=== PATIENT | female | born 1970 | race Caucasian/White ===

== ENCOUNTER 2021-12-16 12:35 | Emergency (ER) | payer SELFPAY ==
--- OUTSIDE RECORDS SUMMARY | 2021-12-16 12:40 | XMS REPORT | Continuity of Care Document ---
:1970 Author Organization [facility] t Address [address] [place] [address] Care Team Providers Name Role Phone Pcp, Does Not Have A Primary Care Physician Alexandra Cook MD Attending Clinician PERLA Attending Clinician Unavailable LIDIA Attending Clinician Unavailable Attending Clinician Unavailable PERLA Admitting Clinician Unavailable LIDIA Admitting Clinician Unavailable Admitting Clinician Unavailable Payers Payer Name Policy Type Policy Number Effective Date Expiration Date [facility] [id number] 2018 00:00:00 Problems Condition Condition Condition Status Onset Resolution Last Treating Co mments Source Name Details Category Date Date Treatment Clinician Date Mixed Mixed Problem Active [place] anxiety Anxiety 2-20 da and and 00:00: [facility] depressive Depressive 00 al disorder Disorder Health [facility] h Program Encounter Encounter Disease Active Overview: Univers for for 08-19 Formattin ity of routine routine 00:00: g of this [place] gynecologi gynecologi 00 note Me dical prieto prieto might be Branch examinatio examinatio different n n from the original. 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 FHx: FHx: Disease Active Univers breast breast 08-19 ity of cancer in cancer in 00:00: Clementine s first first 00 Medical degree degree Branch relative relative Tobacco Tobacco Disease Active Univers use use 08-19 ity of disorder disorder 00:00: [place] [address] Medical Branch Tubal Tubal Disease Active Univers ligation ligation 08-19 ity of status status 00:00: [place] 00 [facility] Branch Hx of Hx of Disease Active Univers abnormal abnormal 08-19 ity of Pap smear Pap smear 00:[facility] Allergies, Adverse Reactions, Alerts Allergy Allergy Status Severity Reaction(s) Onset Inactive Treating Comm ents Source Name Type Date Date Clinician NO KNOWN Drug Active Univers ALLERGIE Class ity of S [facility] Social History Social Habit Start Date Stop Date Quantity Comments Source History of Cigarette Smoker Universi ty of tobacco use [facility] Tobacco use and 2018-02-01 2018-02-01 Never used Universit y of exposure 00:00:00 00:00:00 [facility] Alcohol intake 2018-02-01 2018-02-01 Current University of 00:00:00 00:00:00 non-drinker of [facility] alcohol (finding) [place] Tobacco Comment 2013-08-19 2013-08-19 smokes 6 Universit y of 00:00:00 00:00:00 cigarettes per [facility] day, trying to cut Branch back Sex Ass[birth year] At [birth year] Universit y of 00:00:00 00:00:00 [facility] Smoking Status Start Date Stop Date Source Current every day smoker 2018-02-01 00:00:00 Uni versity of [facility] Medications Ordered Filled Start Stop Current Ordering Indication Dosage Frequency Signature Comments Components Source Medication Medication Date Date Medication? Clinician (SIG) Name Name ibuprofen Yes 600mg Take 600 Uni vers 600 mg 7-07 mg by ity of tablet 14:49: mouth [place] 53 every 6 Medical (six) Branch hours as needed. carisoprodo Yes 350mg Take 350 U nivers l 350 mg 6-09 mg by ity of tablet 00:00: mouth 3 [place] 00 (three) Medical times Branch daily as needed. HYDROcodone Yes 1{tbl} Take 1 Un dawn -acetaminop 6-01 tablet by ity of hen 10-325 00:00: [place] mg tablet 00 (two) Medical times Branch daily. gabapentin gabapentin No gabapentin [place] [facility] gabapentin gabapentin No gabapentin [place] 100 mg 100 mg 100 mg da capsule capsule capsule [facility] TAKE 2 TAKE 2 TAKE 2 al CAPSULES BY CAPSULES BY CAPSULES Health MOUTH 3 MOUTH 3 BY MOUTH 3 Out reac TIMES A DAY TIMES A DAY TIMES A h WITH MEALS WITH MEALS DAY WITH Program MEALS gabapentin gabapentin No gabapentin [place] 600 mg 600 mg 600 mg da tablet TAKE tablet TAKE tablet [facility] 1 TABLET BY 1 TABLET BY TAKE 1 al MOUTH THREE MOUTH THREE TABLET BY Health times a day times a day MOUTH Outreac THREE h times a Program day hydrocodone hydrocodone No hydrocodon [place] 10 10 e 10 da mg-acetamin mg-acetamin mg-acetami [facility] ophen 325 ophen 325 nophen 325 al mg tablet mg tablet mg tablet Health TK 1 T PO Q TK 1 T PO Q TK 1 T PO Outreac 6 H PRN 6 H PRN Q 6 H PRN h Program lisinopril lisinopril No lisinopril [place] 5 mg tablet 5 mg tablet 5 mg d a TAKE 1 TAKE 1 tablet [facility] TABLET BY TABLET BY TAKE 1 al MOUTH EVERY MOUTH EVERY TABLET BY Health DAY DAY MOUTH Outreac EVERY DAY h Program lorazepam lorazepam No lorazepam [place] 0.5 mg 0.5 mg 0.5 mg da tablet TK 1 tablet TK 1 tablet TK [facility] T PO BID T PO BID 1 T PO BID a l PRN FOR PRN FOR PRN FOR Health ANXIETY ANXIETY ANXIETY Outrea c h Program Prozac 20 Prozac 20 No 3capsul Q1D Prozac 20 [place] mg capsule mg capsule e(s) mg capsule da Take 3 Take 3 Take 3 [facility] capsules capsules capsules al every day every day every day Health by oral by oral by oral Outrea c route with route with route with h meals for meals for meals for Program 30 days. 30 days. 30 days. Prozac 40 Prozac 40 No Prozac 40 [place] mg capsule mg capsule mg capsule da Take 1 Take 1 Take 1 [facility] capsule(s) capsule(s) capsule(s) al every day every day every day Health by oral by oral by oral Outrea c route route route h before before before Program meals for meals for meals for 30 days. 30 days. 30 days. tizanidine tizanidine No tizanidine [place] 4 mg tablet 4 mg tablet 4 mg d a TK 1 T PO TK 1 T PO tablet TK [facility] TID. TID. 1 T PO al TID. Health Outreac h Program clonazepam clonazepam No clonazepam [place] 0.5 mg 0.5 mg 0.5 mg da tablet TAKE tablet TAKE tablet [facility] 1 PO BID 1 PO BID TAKE 1 PO al FOR 2 FOR 2 BID FOR 2 Health WEEKS, 1 PO WEEKS, 1 PO WEEKS, 1 Outreac Q DAY FOR 1 Q DAY FOR 1 PO Q DAY h WEEK AND WEEK AND FOR 1 WEEK P rogram 1/2 PO Q 1/2 PO Q AND 1/2 PO DAY FOR 1 DAY FOR 1 Q DAY FOR WEEK AND WEEK AND 1 WEEK AND DISCONTINUE DISCONTINUE DISCONTINU . . E. diazepam 2 diazepam 2 No diazepam 2 [place] mg tablet mg tablet mg tablet da TK 1 T PO TK 1 T PO TK 1 T PO [facility] QD IN THE QD IN THE QD IN THE al MORNING MORNING MORNING Health Outreac h Program fluoxetine fluoxetine No fluoxetine [place] 10 mg 10 mg 10 mg da capsule capsule capsule [facility] TAKE 1 TAKE 1 TAKE 1 al CAPSULE BY CAPSULE BY CAPSULE BY Health MOUTH EVERY MOUTH EVERY MOUTH Outreac DAY WITH DAY WITH EVERY DAY h MEALS MEALS WITH MEALS Program Immunizations Ordered Filled Immunization Date Status Comments [facility] e Immunization Name Name Td 2009-07-24 Completed [facility] 00:00:00 [facility] Vital Signs Vital Name Observation Time Observation Value Comments Source Height 2020-04-25 00:00:00 66 [in_i] [place] [facility] BMI (Body Mass 2020-04-25 00:00:00 27 kg/m2 [place] [employer] [facility] Out[facility] Body Weight 2020-04-25 00:00:00 167 [lb_av] [place] [facility] BP Diastolic 2018-12-14 00:00:00 86 mm[Hg] [place] [facility] BP Systolic 2018-12-14 00:00:00 128 mm[Hg] [place] [facility] Body Weight 2018-12-14 00:00:00 160 [lb_av] [place] [facility] Procedures This patient has no known procedures. Encounters Start End Encounter Admission Attending Care Care Encounter Source Date/Time Date/Time Type Type Clinicians Facility Department ID 2021-03-25 2021-03-25 [facility] [id number] Univers 14:49:00 14:51:00 [id number] [id number] [place] [id number] Branch 2021-03-25 2021-03-25 Emergency X [facility] ERT [id number] Univers 14:35:00 14:35:00 ity of [facility] 2021-01-26 2021-01-26 Outpatient FERGUSON_JO MEHOP MEHOP [id number] [place] 04:51:00 04:51:00 HN [id number] [facility] 2020-05-29 2020-05-29 Outpatient PATEL_NILES MEHOP ORHOP 102 [id number] [place] 03:33:00 03:33:00 H [id number] [facility] 2020-05-25 2020-05-25 Outpatient PATEL_NILES ORHOP ORHOP 102 [id number] [place] 11:18:00 11:18:00 H [id number] [facility] 2020-04-25 2020-04-25 Outpatient PATEL_NILES ORHOP ORHOP 102 [id number] [place] 10:32:00 10:32:00 H [id number] [facility] 2020-04-25 2020-04-25 Constantino Kilpatrick [facility] - [id number] [place] 00:00:00 00:00:00 MD Abhilash: Lorenza neal 1700 [facility] HOP - [facility] [phone] h , Ph. Program [phone] 2020-04-24 Outpatient PATEL_NILES ORHOP ORHOP [id number] [place] 11:36:00 11:36:00 H [id number] [facility] 2020-01-04 2020-01-04 Outpatient PATEL_NILES MEHOP MEHOP [id number] [place] 12:18:00 12:18:00 H [id number] [facility] 2019-12-13 2019-12-13 Outpatient PATEL_NILES MEHOP MEHOP [id number] [place] 11:38:00 11:38:00 H [id number] [facility] 2019-12-13 2019-12-13 Constantino Kilpatrick [place] - [id number] [place] 00:00:00 00:00:00 MD Abhilash: Lorenza neal [id number] [place] [facility] HOP - MEHOP [facility] [address], [place] Program [phone] , Ph. 2019-12-12 2019-12-12 Outpatient PATEL_NILES MEHOP MEHOP 102 [id number] [place] 06:12:00 06:12:00 H [id number] da [facility] 2019-12-05 2019-12-05 Emergency X [facility] ERT [id number] Univers 11:16:00 11:16:00 [facility] 2019-11-30 2019-11-30 Outpatient PATEL_NILES MEHOP MEHOP [id number] [place] 12:16:00 12:16:00 H [id number] da [facility] 2019-10-26 2019-10-26 Outpatient PATEL_NILES MEHOP MEHOP [id number] [place] 12:25:00 12:25:00 H [id number] da [facility] 2019-09-21 2019-09-21 Outpatient PATEL_NILES MEHOP MEHOP [id number] [place] 03:05:00 03:05:00 H [id number] [facility] 2019-09-20 2019-09-20 Outpatient PATEL_NILES MEHOP MEHOP [id number] [place] 03:30:00 03:30:00 H [id number] [facility] 2019-09-20 2019-09-20 Constantino Kilpatrick [facility] [place] - [id number] [place] 00:00:00 00:00:00 MD Abhilash: Lorenza neal [id number] [place] [facility] HOP - ORHOP [facility] [address], [place] Program [phone] , Ph. 2019-08-23 2019-08-23 Outpatient PAT[facility]ANA_LON [facility] 102 [id number] [place] 10:41:00 10:41:00 H [id number] [facility] 2019-08-23 2019-08-23 Constantino ROBINS [place] - [id number] [place] 00:00:00 00:00:00 MD Abhilash: Lorenza neal [id number] [place] [facility] 59 [facility] [address], [facility] [place] Program [phone] , Ph. 2019-06-01 2019-06-01 Constantino Kilpatrick [place] - [id number] [place] 00:00:00 00:00:00 MD Abhilash: Lorenza neal 1700 [facility] [address] Behavioral [facility] [address] [facility] , Ph. [phone] 2019-02-15 2019-02-15 Constantino Kilpatrick [facility] [place] - [id number] [place] 00:00:00 00:00:00 MD Abhilash: Lorenza neal [id number] [place] [facility] 59 [facility], [facility] [place] Program [phone] , Ph. 2018-12-14 2018-12-14 Constantino Kilpatrick [facility] [place] - [id number] [place] 00:00:00 00:00:00 MD Abhilash: Lorenza neal [id number] [place] [facility] 59 [facility], [facility] [place] Program [phone] , Ph. Results Test Description Test Time Test Comments Results Result Sourc e Comments MRI SPINE LUMBAR 2016-10-15 MRI Lumbar Spine W/O CONTRAST 12:21:35 without contrastLocation code: [id number]: lower back painCOMPARISON: None.Technique: Multiplanar multisequence MR imaging of the lumbar spine wasperformed without contrast. Findings: Lumbar vertebral height and marrow signal are preserved throughout. 5lumbar segments are assumed. The conus terminates normally at T12-L1. Theparaspinal soft tissues are unremarkable. Multilevel spondylitic changes arenoted as follows:L1-L2: No significant central canal or foraminal stenosis.L2-L3: No significant central canal or foraminal stenosis.L3-L4: Broad-based bulge noted with mild facet arthropathy without stenosis ormass.L4-L5: Mild disc desiccation with central 3 to 4 mm disc herniation withannular fissure and moderate facet arthropathy creates moderate stenosis withright greater than left-sided L5 nerve root encroachment.L5-S1: Moderate disc space narrowing with reactive endplate changes. There is acentral 3 to 4 mm disc protrusion/herniation superimposed a broad-based annularbulge with posterior spondylosis and facet arthropathy creating moderatestenosis with bilateral S1 nerve root and foraminal encroachment.IMPRESSIO N: 1. Central disc protrusion/herniations at L4-5 and L5-S1 with associated facetarthropathy creating moderate stenosis and bilateral L5 and S1 nerve rootencroachment respectively. Annular fissure seen at L4-5.
[2021-12-16] MEDS ORDERED: TETRACAINE HCL 0.5% 4ML OPTH ONE (13:50)
--- NOTE | 2021-12-16 14:09 | ER ---
Nurse's Notes [facility] Name: Lucretia Lozada Age: 51 yrs Sex: Female : 1970 Arrival Date: 12/16/2021 Time: 12:41 Bed Treatment Private MD: Diagnosis: Other acute conjunctivitis Presentation: 12/16 12:58 Chief complaint: Patient states: right eye swelling and drainage X 2 days, irritated iw from her contact. Coronavirus screen: At this time, the client does not indicate any symptoms associated with coronavirus-19. Ebola Screen: Patient negative for fever greater than or equal to 101.5 degrees Fahrenheit, and additional compatible Ebola Virus Disease symptoms Patient denies exposure to infectious person. Patient denies travel to an Ebola-affected area in the 21 days before illness onset. No symptoms or risks identified at this time. Initial Sepsis Screen: Does the patient meet any 2 criteria? No. Patient's initial sepsis screen is negative. Does the patient have a suspected source of infection? No. Patient's initial sepsis screen is negative. Risk Assessment: Do you want to hurt yourself or someone else? Patient reports no desire to harm self or others. Onset of symptoms was December 16, 2021. 12:58 Method Of Arrival: Ambulatory iw 12:58 Acuity: BRENNEN 4 iw Historical: - Allergies: 12:59 No Known Allergies; ED Course: 12:41 Patient arrived in ED. mr 12:50 Selvin Gonzales PA is PHCP. [facility] 12:50 Abiel uHrt MD is Attending Physician. [facility] 12:59 Triage completed. iw 12:59 Arm band placed on. iw 13:42 Kellee Koehler, RN is Primary Nurse. iw 14:09 Porter Aleman MD is Referral Physician. [facility] Administered Medications: No medications were administered Outcome: 14:09 Discharge ordered by . [facility] 14:32 Patient left the ED. Signatures: Selvin Gonzales PA PA jmm Rivera, Mary mr Kellee Koehler, RN RN iw
--- NOTE | 2021-12-16 14:09 | EDPHYS ---
Physician Documentation [facility] Name: Lucretia Lozada Age: 51 yrs Sex: Female : 1970 Arrival Date: 12/16/2021 Time: 12:41 Bed Treatment Private MD: OWEN Physician Abiel Hurt HPI: 12/16 12:51 This 51 yrs old Female presents to ER via Ambulatory with complaints of Eye Swelling. jmm 12:51 The patient is experiencing pain. Onset: The symptoms/episode began/occurred gradually, jmm 2 day(s) ago. Duration: the symptoms are continuous. Aggravated by nothing. Alleviated by nothing. Associated signs and symptoms: Pertinent negatives: fever. This is a 51 year old female that presents to the ED with complaints of pain, swelling, discharge from the right eye. Patient states taking out her contacts once pain started. Denies fever. . Historical: - Allergies: 12:59 No Known Allergies; iw ROS: 12:51 Constitutional: Negative for fever, chills, and weight loss, Cardiovascular: Negative jmm for chest pain, palpitations, and edema, Respiratory: Negative for shortness of breath, cough, wheezing, and pleuritic chest pain. 12:51 Eyes: Positive for pain, swelling. 12:51 All other systems are negative. Exam: 12:51 Visual Acuity: The patient's visual acuity was not tested, because the patient refused jmm the exam. 12:51 Constitutional: This is a well developed, well nourished patient who is awake, alert, and in no acute distress. 12:51 ENT: Moist Mucus Membranes Neck: Trachea midline, Supple Chest/axilla: Normal chest wall appearance and motion. Cardiovascular: Regular rate and rhythm. No edema appreciated Respiratory: Normal respirations, no respiratory distress appreciated Abdomen/GI: Non distended, soft Back: Normal ROM Skin: General appearance color normal MS/ Extremity: Moves all extremities, no obvious deformities appreciated, no edema noted to the lower extremities Neuro: Awake and alert Psych: Behavior is normal, Mood is normal, Patient is cooperative and pleasant 12:51 Head/face: Noted is swelling, that is moderate, of the right eye. 12:51 Eyes: Extraocular movements: intact throughout, Conjunctiva: injected, in the right eye. MDM: 12:51 Patient medically screened. [facility] 14:09 Data reviewed: vital signs, nurses notes. Counseling: I had a detailed discussion with [facility] the patient and/or guardian regarding: the historical points, exam findings, and any diagnostic results supporting the discharge/admit diagnosis, the need for outpatient follow up, to return to the emergency department if symptoms worsen or persist or if there are any questions or concerns that arise at home. 14:09 ED course: Patient refused full evaluation. Advised to follow up with opthalmology and m otherwise given strict return precautions. patient understood and agrees with the plan of care. . Administered Medications: No medications were administered Disposition Summary: 12/16/21 14:09 Discharge Ordered Location: Home [facility] Condition: Stable [facility] Diagnosis - Other acute conjunctivitis [facility] Followup: [facility] - With: Porter Aleman MD - When: 2 - 3 days - Reason: Recheck today's complaints, Continuance of care, Re-evaluation by your physician Discharge Instructions: - Discharge Summary Sheet [facility] - Bacterial Conjunctivitis, Adult [facility] Forms: - Medication Reconciliation Form [facility] - Thank You Letter [facility] - Antibiotic Education [facility] - Prescription Opioid Use [facility] Prescriptions: - moxifloxacin 0.5 % Ophthalmic drops, viscous - instill 1 drop by OPHTHALMIC route every 12 hours for 7 days; 1 bottle; [facility] Refills: 0, Product Selection Permitted - Augmentin 875-125 mg Oral Tablet - take 1 tablet by ORAL route every 12 hours for 10 days; 20 tablet; Refills: 0, [facility] Product Selection Permitted - Ultracet 37.5-325 mg Oral Tablet - take 1 tablet by ORAL route every 6 hours - for up to 5 days; do not exceed 8 jmm tablets per day.; 12 tablet; Refills: 0, Product Selection Permitted Signatures: Abiel Hurt MD MD cha Mickail, Joel, PA PA [facility] Kellee Koehler, RN RN iw
== END 2021-12-16 14:32 | disposition home or self-care (01) ==
LOC: ER 12:35
DX: H10.31 Unspecified acute conjunctivitis, right eye (principal)
CPT/HCPCS: 99281